=== PATIENT | female | born 2000 | race American Indian/Alaskan Native ===

== ENCOUNTER 2019-02-11 18:14 | Emergency (ER) | payer OTHER ==
[2019-02-11 20:50] VITALS: BP 134/88
[2019-02-11] MEDS ORDERED: ACETAMINOPHEN 325 MG TAB PO ONE (20:51)
[2019-02-11] MEDS ORDERED: ACETAMINOPHEN 325 MG TAB ONE (20:54)
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
[2019-02-11] MEDS ORDERED: IBUPROFEN 800 MG TAB PO ONE (23:04)
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
== END 2019-02-11 23:49 | disposition home or self-care (01) ==
LOC: ED 18:14
DX: S16.1XXA Strain of muscle, fascia and tendon at neck level, initial encounter (principal); S70.12XA Contusion of left thigh, initial encounter; V89.2XXA Person injured in unspecified motor-vehicle accident, traffic, initial encounter; Y93.89 Activity, other specified; Y92.89 Other specified places as the place of occurrence of the external cause; Y99.8 Other external cause status
CPT/HCPCS: 72040